=== PATIENT | female | born 1985 | race Caucasian/White ===

== ENCOUNTER 2022-12-29 20:39 | Emergency (ER) | payer BC ==
--- OUTSIDE RECORDS SUMMARY | 2022-12-29 20:41 | XMS REPORT | Continuity of Care Document ---
:1985 Author Organization [facility] t Address [address] [place] [address] Care Team Providers Name Role Phone Pcp, Patient Does Not Have A Primary Care Physician [id number] Brian Attending Clinician Unavailable RUPINDER HOPKINS Attending Clinician Unavailable Rupinder Seals Attending Clinician Unknown, Attending Attending Clinician Unavailable LITTLE BAUTISTA Attending Clinician Unavailable Little Bautista PA-C Attending Clinician Doctor Unassigned, [place] Attending Clinician Unavailable Lab, Adc Fam Pob I Attending Clinician Unavailable Sanaz Black Attending Clinician SANAZ FRASER Attending Clinician Unavailable Brian Admitting Clinician Unavailable Payers Payer Name Policy Type Policy Number Effective Date Expiration Date S [place] [id number] 2022 00:00:00 [id number] 2022 00:00:00 [place] [id number] 2017 00:00:00 OUT OF STATE Problems This patient has no known problems. Allergies, Adverse Reactions, Alerts Allergy Allergy Status Severity Reaction(s) Onset Inactive Treating Comm ents Source Name Type Date Date Clinician VANCOMYC DRUG Active Other-Cmnt Univ ers IN INGREDI 02-02 ity of 00:00: [place] 00 Medical Branch Vancomyc Drug Active Other - See Uni vers in Allergy comments 8- ity of 00:00: [place] 00 Medical Branch NO KNOWN Drug Active Univers ALLERGIE Class ity of S [facility] Social History Social Habit Start Date Stop Date Quantity Comments Source [facility] [birth year] [facility] [place] [facility] Medical Branch Smoking Status Start Date Stop Date Source Tobacco smoking consumption Univ ersity of [place] Medical unknown Branch Medications Ordered Filled Start Stop Current Ordering Indication Dosage Frequency Signature Comments Components Source Medication Medication Date Date Medication? Clinician (SIG) Name Name Nitrofurant Yes [id number] 100mg Take 1 Univers oin&Nit. 4-08 capsule by ity o f Macrocryst 00:00: mouth in Abdoulaye as (MACROBID) 00 the Medical 100 mg morning Branch capsule and 1 capsule in the evening. Nitrofurant Yes [id number] 100mg Take 1 Univers oin&Nit. 4-08 capsule by ity o f Macrocryst 00:00: mouth in Abdoulaye as (MACROBID) 00 the Medical 100 mg morning Branch capsule and 1 capsule in the evening. Nitrofurant Yes [id number] 100mg Take 1 Univers oin&Nit. 4-08 capsule by ity o f Macrocryst 00:00: mouth in Abd[place]aye as (MACROBID) 00 the Medical 100 mg morning Branch capsule and 1 capsule in the evening. TRI-LO-DEANDRE Yes Univer s 0.18/0.215/ 4-03 ity of 0.25 mg-25 00:00: [place] mcg tablet 00 Medical Branch TRI-LO-DEANDRE Yes Univer s 0.18/0.215/ 4-03 ity of 0.25 mg-25 00:00: [place] mcg tablet 00 Medical Branch TRI-LO-DEANDRE Yes Univer s 0.18/0.215/ 4-03 ity of 0.25 mg-25 00:00: [place] mcg tablet 00 Medical Branch clonazePAM Yes TAKE 1 Unive rs 0.5 mg 3-31 TABLET BY ity of tablet 00:00: MOUTH 2 [place] 00 TIMES A Medical DAY IF Branch NEEDED FOR ANXIETY. eszopiclone 2023-0 Yes TAKE 1 Univ ers 3 mg tablet 3-31 TABLET (3 ity of 00:00: MG TOTAL) BY MOUTH Medical EVERY Branch NIGHT TAKE IMMEDIATEL Y BEFORE BEDTIME SERTraline 2022-0 Yes 75mg Take 1.5 Uni vers 50 mg 3-31 tablets by ity of tablet 00:00: mouth. [place] [facility] Branch clonazePAM 2022-0 Yes TAKE 1 Unive rs 0.5 mg 3-31 TABLET BY ity of tablet 00:00: MOUTH 2 [place] 00 TIMES A Medical DAY IF Branch NEEDED FOR ANXIETY. eszopiclone 0 Yes TAKE 1 Univ ers 3 mg tablet 3-31 TABLET (3 ity of 00:00: MG TOTAL) [place] BY MOUTH Medical EVERY Branch NIGHT TAKE IMMEDIATEL Y BEFORE BEDTIME SERTraline 2022-0 Yes 75mg Take 1.5 Uni vers 50 mg 3-31 tablets by ity of tablet 00:00: mouth. [address] clonazePAM Yes TAKE 1 Unive rs 0.5 mg 3-31 TABLET BY ity of tablet 00:00: MOUTH 2 [place] 00 TIMES A Medical DAY IF Branch NEEDED FOR ANXIETY. eszopiclone 0 Yes TAKE 1 Univ ers 3 mg tablet 3-31 TABLET (3 ity of 00:00: MG TOTAL) [place] BY MOUTH Medical EVERY Branch NIGHT TAKE IMMEDIATEL Y BEFORE BEDTIME SERTraline 2022-0 Yes 75mg Take 1.5 Uni vers 50 mg 3-31 tablets by ity of tablet 00:00: mouth. [address] valACYclovi 2021-0 Yes 500mg Take 1 Uni vers r 500 mg 9-01 tablet by ity of tablet 00:00: mouth. [address] valACYclovi 2021-0 Yes 500mg Take 1 Uni vers r 500 mg 9-01 tablet by ity of tablet 00:00: mouth. [address] Branch valACYclovi 2021-0 Yes 500mg Take 1 Uni vers r 500 mg 9-01 tablet by ity of tablet 00:00: mouth. [address] Vital Signs Vital Name Observation Time Observation Value Comments Source Systolic blood 2022-11-04 17:34:00 104 mm[Hg] Univer sity of pressure [facility] Diastolic blood 2022-11-04 17:34:00 64 mm[Hg] Unive rsity of pressure [facility] Heart rate 2022-11-04 17:34:00 69 /min Universi ty of [facility] Body temperature 2022-11-04 17:34:00 36.39 Rachael Univ ersity of [facility] Branch Respiratory rate 2022-11-04 17:34:00 16 /min Univ ersity of [facility] Body height 2022-11-04 17:34:00 162.6 cm Universi ty of [place] [facility] [place] Body weight 2022-11-04 17:34:00 78.472 kg Universi ty of [facility] BMI 2022-11-04 17:34:00 29.70 kg/m2 Universi ty of [facility] Oxygen saturation in 2022-11-04 17:34:00 97 /min University of Arterial blood by [facility] Pulse oximetry Branch Systolic blood 2022-09-23 01:06:00 117 mm[Hg] Univer sity of [facility] Diastolic blood 2022-09-23 01:06:00 77 mm[Hg] Unive rsity of [facility] Heart rate 2022-09-23 01:06:00 74 /min Universi ty of [facility] Body temperature 2022-09-23 01:06:00 36.61 Rachael [facility] Respiratory rate 2022-09-23 01:06:00 17 /min Univ ersity of [facility] Body height 2022-09-23 01:06:00 165.1 cm Universi ty of [place] [facility] [place] Body weight 2022-09-23 01:06:00 75.297 kg Universi ty of [facility] BMI 2022-09-23 01:06:00 27.62 kg/m2 Universi ty of [facility] Oxygen saturation in 2022-09-23 01:06:00 97 /min University of Arterial blood by [facility] Pulse oximetry Branch Procedures Procedure Date / Time Performed Performing Clinician Sourc e XR ANKLE 3+ VW LEFT 2022-11-04 17:53:51 Rupinder Hopkins [facility] POCT TEST 2022-09-23 01:17:00 Little Bautista [facility] ASSIGNMENT OF BENEFITS 2022-09-23 00:58:51 Doctor Unassigned, No [facility] [place] Name Medical Branch Encounters Start End Encounter Admission Attending Care Care Encounter Source Date/Time Date/Time Type Type Clinicians Facility Department ID 2022-12-05 2022-12-05 Outpatient FOG_Loncari AOSM AOSM [id number] Lorie 00:00:00 00:00:00 Antwan [id number] [facility] 2022-11-27 2022-11-27 Outpatient FOG_Loncari AOSM AOSM [id number] Lorie 00:00:00 00:00:00 Antwan [id number] [facility] 2022-11-27 2022-11-27 Outpatient FOG_Loncari AOSM AOSM [id number] Lorie 00:00:00 00:00:00 Antwan [id number] [facility] 2022-11-08 2022-11-08 Outpatient FOG_Loncari AOSM AOSM [id number] Lorie 00:00:00 00:00:00 Antwan [id number] Orth [facility] 2022-11-07 2022-11-07 Outpatient FOG_Loncari AOSM AOSM [id number] Lorie 00:00:00 00:00:00 Antwan [id number] [facility] 2022-11-05 2022-11-05 Outpatient FOG_Loncari AOSM AOSM [id number] Lorie 00:00:00 00:00:00 Antwan [id number] Orth ope [facility] Medicin e 2022-11-04 2022-11-04 [facility] [id number] Univers 12:48:40 23:59:00 RUPINDER ity [facility] 2022-11-04 2022-11-04 [facility] [id number] Univers 12:48:40 23:59:00 Encounter [id number] 4.2.7.2.686 Abdoulaye as COLE?BLEA [id number] Vt dical GAUTAM [address] [place] MEDICAL OFFICE BUILDING 2022-11-04 2022-11-04 Urgent Rupinder Hopkins [facility] [id number] Univers 12:20:00 13:22:06 Care Unknown, Attending HEALTH [id number] ity of [place] 4.2.7.2.686 Abdoulaye as COLE?BLEA [id number] [address] OFFICE BUILDING 2022-09-22 2022-09-22 Outpatient R LETTY [facility] [id number] Univers 20:00:00 20:12:51 LITTLE ity of [facility] 2022-09-22 2022-09-22 Urgent Letty [facility] [id number] Univers 20:00:00 20:12:51 Care Unknown, Attending HEALTH [id number] [facility] 4.2.7.2.686 Abdoulaye as COLE?BLEA [id number] [address] OFFICE [facility] 2022-09-22 2022-09-22 Orders Doctor MICHELLE [id number] Univers 00:00:00 00:00:00 Only Unassigned, WES [id number] ity of [place] [facility] 4.2.7.2.686 Abdoulaye as [id number] [address] 2020-01-08 2020-01-08 Laboratory Lab, [facility] [id number] 08:44:06 09:04:06 Only Fam Pob I Health [id number] [place] 4.2.7.2.686 Professio [id number] [address] 2020-01-08 2020-01-08 Laboratory Lab, [facility] Fam Pob I [facility] [id number] Univers 08:44:06 09:04:06 Only Aneyonathan [facility] [id number] ity of [place] 4.2.7.2.686 Abdoulaye as Professio [id number] [address] Office [facility] 2020-01-08 2020-01-08 Outpatient R BRIA [facility] [id number] Univers 08:40:00 08:40:00 SANAZ ity [facility] Results Test Description Test Time Test Comments Results Result Comments Source POCT TEST 2022-09-23 01:17:00 Test Item Value Reference Range Interpretation Comme nts POCT PREG (test code = 1605) Negative On board controls acceptable with C Line (test code = 3574) Yes POCT PREG LOT # (test code = 3575) POCT PREG TEST DATE (test code = 3576) [facility]
[2022-12-29] MEDS ORDERED: MORPHINE 4 MG/ML SYR ONE (21:19)
[2022-12-29] MEDS ORDERED: ONDANSETRON 4 MG/2 ML VIAL ONE (21:20)
[2022-12-29 21:30] LABS: Absolute Lymphocytes (CBC) 3.4 K/uL (0.7-4.9); Hematocrit 38.7 % (36.0-45.0); Lymphocytes % 24.7 % (15.3-44.8); MPV 7.8 fL (7.6-11.3); RBC Red Blood Cell Count 4.55 M/uL (3.86-4.86)
[2022-12-29 21:39] LABS: Potassium 3.6 mEq/L (3.5-5.1)
--- NOTE | 2022-12-29 21:48 | RAD REPORT ---
EXAM DESCRIPTION: RAD - Wrist Left 3 View - 12/29/2022 9:41 pm CLINICAL HISTORY: PAIN Pain COMPARISON: No comparisons FINDINGS: No fracture or dislocation seen. No foreign body or other soft tissue abnormality. IMPRESSION: Negative examination.
--- NOTE | 2022-12-29 21:49 | RAD REPORT ---
EXAM DESCRIPTION: RAD - Forearm Left - 12/29/2022 9:41 pm CLINICAL HISTORY: PAIN COMPARISON: No comparisons FINDINGS: No acute fracture or dislocation seen.
--- NOTE | 2022-12-29 21:50 | RAD REPORT ---
EXAM DESCRIPTION: RAD - Hand Right 3 View - 12/29/2022 9:41 pm CLINICAL HISTORY: PAIN COMPARISON: No comparisons FINDINGS: There is a fracture involving the base of the proximal phalanx of the fifth finger with mo derate the displacement.
--- NOTE | 2022-12-29 22:21 | RAD REPORT ---
EXAM DESCRIPTION: CT - Head C Spine Cap W Con - 12/29/2022 10:04 pm CLINICAL HISTORY: Trauma, head and neck injury. Chest, abdomen and pelvis pain. TRAUMA COMPARISON: Facial Bones W/ Mpr dated 12/29/2022; Forearm Left dated 12/29/2022; Wrist Left 3 View yael ed 12/29/2022 TECHNIQUE: CT head without contrast. CT cervical spine without contrast with coronal and sagittal reformatted images. CT chest, abdomen and pelvis with IV contrast (approximately 100 mL nonionic IV contrast) with mcfarland l and sagittal reformatted images of the spine. All CT scans are performed using dose optimization technique as appropriate and may include automated exposure control or mA/KV adjustment according to patient size. FINDINGS: CT HEAD WITHOUT CONTRAST: No intracranial hemorrhage, hydrocephalus or extra-axial fluid collection. No areas of brain edema o r midline shift. The paranasal sinuses and mastoids are clear. The calvarium is intact. Right periorbital soft tissue swelling. CT CERVICAL SPINE WITHOUT CONTRAST: No fracture or subluxation. The prevertebral soft tissues are normal in thickness. CT CHEST, ABDOMEN, PELVIS WITH CONTRAST: The lungs are clear.No pneumothorax or pericardial/pleural fluid. No evidence of intra-abdominal visceral injury, free fluid or free air. No concerning pelvic findings. No fractures. IMPRESSION: Negative for acute traumatic findings.
--- NOTE | 2022-12-29 22:22 | RAD REPORT ---
EXAM DESCRIPTION: CT - CTFB CLINICAL HISTORY: TRAUMA COMPARISON: No comparisons TECHNIQUE: Axial 2 mm thick images of the face were obtained with sagittal and coronal reconstructio n images. All CT scans are performed using dose optimization technique as appropriate and may include automated exposure control or mA/KV adjustment according to patient size. FINDINGS: No acute facial bone fracture is seen.The mandible is intact. The globes and orbital contents are grossly unremarkable.Moderate right periorbital soft tissue swell ing.The paranasal sinuses and mastoids are clear. IMPRESSION: Negative for facial bone fracture. Moderate soft tissue swelling right preseptal region. No underlying vitreous abnormality.
[2022-12-29] MEDS ORDERED: FENTANYL CITR 100 MCG/2 ML ONE ×2 (22:28→23:04)
[2022-12-29] MEDS ORDERED: LORazepam 2 MG/ML VIAL ONE (23:04)
[2022-12-29] MEDS ORDERED: KETOROLAC 30 MG/ML INJ ONE (23:05)
--- NOTE | 2022-12-29 23:30 | EDPHYS ---
Physician Documentation [facility] Name: Tereza Clayton Age: 37 yrs Sex: Female : 1985 Arrival Date: 12/29/2022 Time: 20:39 Bed 3 Private MD: ED Physician Angus Madlonado HPI: 12/30 00:09 This 37 yrs old Female presents to ER via Wheelchair with complaints of Fell Of Horse. rt 00:09 Patient presents to the ED with a fall from horse that occurred just prior to arrival. rt The patient complains of pain to the left forearm, wrist. The patient also complains of pain to the right little finger. She reports an abrasion to the face, but denies loss of consciousness. Denies other pain. Symptoms are moderate severity, aching nature, nonradiating, no other aggravating alleviating factors. 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 - Immunization history: Last tetanus immunization: unknown. - Social history:: Smoking status: Patient denies any tobacco usage or history of. - Family history:: not pertinent. ROS: 12/30 00:09 Constitutional: Negative for fever, chills, and weight loss, Neck: Negative for injury, rt pain, and swelling, Cardiovascular: Negative for chest pain, palpitations, and edema, Respiratory: Negative for shortness of breath, cough, wheezing, and pleuritic chest pain, Abdomen/GI: Negative for abdominal pain, nausea, vomiting, diarrhea, and constipation, Skin: Negative for injury, rash, and discoloration, Neuro: Negative for headache, weakness, numbness, tingling, and seizure, Psych: Negative for depression, anxiety, suicide ideation, homicidal ideation, and hallucinations. MS/extremity: Positive for injury or acute deformity, Negative for contusion. Exam: 00:09 Constitutional: This is a well developed, well nourished patient who is awake, alert, rt and in no acute distress. Neck: Trachea midline, no thyromegaly or masses palpated, and no cervical lymphadenopathy. Supple, full range of motion without nuchal rigidity, or vertebral point tenderness. No Meningismus. Chest/axilla: Normal chest wall appearance and motion. Nontender with no deformity. No lesions are appreciated. Cardiovascular: Regular rate and rhythm with a normal S1 and S2. No gallops, murmurs, or rubs. Normal PMI, no JVD. No pulse deficits. Respiratory: Lungs have equal breath sounds bilaterally, clear to auscultation and percussion. No rales, rhonchi or wheezes noted. No increased work of breathing, no retractions or nasal flaring. Abdomen/GI: Soft, non-tender, with normal bowel sounds. No distension or tympany. No guarding or rebound. No evidence of tenderness throughout. Skin: Warm, dry with normal turgor. Normal color with no rashes, no lesions, and no evidence of cellulitis. Neuro: Awake and alert, GCS 15, oriented to person, place, time, and situation. Cranial nerves II-XII grossly intact. Motor strength 5/5 in all extremities. Sensory grossly intact. Cerebellar exam normal. Normal gait. Psych: Awake, alert, with orientation to person, place and time. Behavior, mood, and affect are within normal limits. 00:09 Head/face: Abrasion noted to the right cheek, no other external evidence of trauma. 00:09 Musculoskeletal/extremity: The right little digit is deviated laterally, good capillary refill, there is bruising noted to the left forearm, no deformities noted, no snuffbox tenderness, pulses, motor, sensation intact. Vital Signs: 12/29 20:53 BP 129 / 84; Pulse 105; Resp 20; Temp 99.4; Pulse Ox 100% ; Weight 70.31 kg; Height 5 as6 ft. 4 in. ; Pain 10/10; 22:15 BP 122 / 80; Pulse 100; Resp 16; Pulse Ox 99% on R/A; jb4 23:10 BP 112 / 65; Pulse 101; Resp 19; Pulse Ox 97% on R/A; jb4 23:20 BP 113 / 67; Pulse 94; Resp 20 S; Pulse Ox 98% on R/A; as6 20:53 Body Mass Index 26.61 (70.31 kg, 162.56 cm) as6 20:53 Pain Scale: Adult as6 [place] Coma Score: 21:01 Eye Response: spontaneous(4). Motor Response: obeys commands(6). Verbal Response: jb4 oriented(5). Total: 15. 22:15 Eye Response: spontaneous(4). Motor Response: obeys commands(6). Verbal Response: jb4 oriented(5). Total: 15. 23:10 Eye Response: spontaneous(4). Motor Response: obeys commands(6). Verbal Response: jb4 oriented(5). Total: 15. Trauma Score (Adult): 21:01 Eye Response: spontaneous(1); Verbal Response: oriented(1); Motor Response: obeys jb4 commands(2); Systolic BP: > 89 mm Hg(4); Respiratory Rate: 10 to 29 per min(4); Tee Score: 15; Trauma Score: 12 22:15 Eye Response: spontaneous(1); Verbal Response: oriented(1); Motor Response: obeys jb4 commands(2); Systolic BP: > 89 mm Hg(4); Respiratory Rate: 10 to 29 per min(4); Tee Score: 15; Trauma Score: 12 23:10 Eye Response: spontaneous(1); Verbal Response: oriented(1); Motor Response: obeys jb4 commands(2); Systolic BP: > 89 mm Hg(4); Respiratory Rate: 10 to 29 per min(4); Tee Score: 15; Trauma Score: 12 Procedures: 12/30 00:09 Splinting: Splint applied to right hand using Ulnar gutter. applied by myself. Examined rt by me, post splint application: neurovascular intact, 2+ distal pulses palpable, brisk capillary refill noted, Patient tolerated well, The finger was moved into a more anatomic position prior to splinting. MDM: 12/29 20:46 Patient medically screened. rt 12/30 00:09 Differential Diagnosis Fracture, dislocation, contusion, sprain. Data reviewed: vital rt signs, nurses notes, radiologic studies. I considered the following discharge prescriptions or medication management in the emergency department Medications were administered in the Emergency Department. See MAR. Independent interpretation of the following test(s) in the Emergency Department CT Scan: My interpretation is No hemorrhage seen on interpretation of the CT scan images. Counseling: I had a detailed discussion with the patient and/or guardian regarding: the historical points, exam findings, and any diagnostic results supporting the discharge/admit diagnosis, lab results, radiology results, the need for outpatient follow up. ED course: Patient structured to follow-up with hand surgery. Patient was informed that she should follow-up for repeat x-rays of the wrist should her symptoms persist. No evidence of compartment syndrome on physical examination. Patient stable for outpatient care, return precautions as. 12/29 21:08 Order name: Basic Metabolic Panel; Complete Time: 21:46 rt 12/29 21:08 Order name: CBC with Diff; Complete Time: 21:46 rt 12/29 21:08 Order name: Type And Screen; Complete Time: 22:16 rt 12/29 21:08 Order name: CT Traumagram (Head C Spine CAP W Con); Complete Time: 22:28 rt 12/29 21:08 Order name: Wrist Left (3 View) XRAY; Complete Time: 22:16 rt 12/29 21:08 Order name: Forearm Left XRAY; Complete Time: 22:16 rt 12/29 21:08 Order name: Hand Right 3 View XRAY; Complete Time: 22:16 rt 12/29 21:46 Order name: CT Facial Bones W/O Con; Complete Time: 22:28 rt 12/29 21:08 Order name: Labs collected and sent; Complete Time: 21:20 rt 12/29 22:44 Order name: Splint - Wrist; Complete Time: 22:59 rt Administered Medications: 12/29 21:20 Drug: morphine IVP or IV 4 mg Route: IVP; Infused Over: 4 mins; Site: right antecubital;jb4 23:26 Follow up: Response: No adverse reaction as6 21:20 Drug: Ondansetron IVP 4 mg Route: IVP; Site: right antecubital; jb4 23:27 Follow up: Response: No adverse reaction as6 22:23 Drug: fentaNYL (PF) IVP 100 mcg Route: IVP; Site: right antecubital; jb4 23:27 Follow up: Response: No adverse reaction as6 22:59 Drug: Ativan IVP 0.5 mg Route: IVP; Site: right antecubital; jb4 23:27 Follow up: Response: No adverse reaction as6 22:59 Drug: fentaNYL (PF) IVP 50 mcg Route: IVP; Site: right antecubital; jb4 23:27 Follow up: Response: No adverse reaction as6 22:59 Drug: Ketorolac IVP 15 mg Route: IVP; Site: right antecubital; jb4 23:27 Follow up: Response: No adverse reaction as6 Disposition Summary: 12/29/22 23:29 Discharge Ordered Location: Home rt Problem: new rt Symptoms: have improved rt Condition: Stable rt Diagnosis - Fall from horse rt - Right fifth proximal phalanx fracture rt - Left wrist pain rt - Abrasion to face rt Followup: rt - With: Mannie Sherman MD - When: 5 - 6 days - Reason: Discharge Instructions: - Discharge Summary Sheet rt - Abrasion rt - Finger Fracture, Adult rt - Wrist Sprain, Adult rt Forms: - Medication Reconciliation Form rt - Thank You Letter rt - Antibiotic Education rt - Prescription Opioid Use rt - Patient Portal Instructions rt Prescriptions: - acetaminophen-codeine 300-30 mg Oral tablet - take 1 tablet by ORAL route every 6 hours; 18 tablet; Refills: 0, Product rt Selection Permitted Signatures: Dispatcher [employer] Jabari Sen, RN RN jb4 Mark Lai RN RN as6 Angus Maldonado MD MD rt
--- NOTE | 2022-12-29 23:30 | ER ---
Nurse's Notes [facility] Name: Tereza Clayton Age: 37 yrs Sex: Female : 1985 Arrival Date: 12/29/2022 Time: 20:39 Bed 3 Private MD: Diagnosis: Fall from horse;Right fifth proximal phalanx fracture;Left wrist pain;Abrasion to face Presentation: 12/29 20:53 Chief complaint: Patient states: Fell off a horse onto the ground 30 minutes prior to as6 arrival. Hematoma, swelling to right side of face, pain to right ribs, right hand 5th finger deformity, left arm deformity. Onset of symptoms was December 29, 2022. 20:53 Method Of Arrival: Wheelchair as6 20:53 Acuity: SYED 2 as6 23:26 Coronavirus screen: At this time, the client does not indicate any symptoms associated as6 with coronavirus-19. Ebola Screen: No symptoms or risks identified at this time. Initial Sepsis Screen: Does the patient meet any 2 criteria? No. Patient's initial sepsis screen is negative. Does the patient have a suspected source of infection? No. Patient's initial sepsis screen is negative. Risk Assessment: Do you want to hurt yourself or someone else? Patient reports no desire to harm self or others. 23:26 Care prior to arrival: None. Mechanism of Injury: Fall. Trauma event details: Injury as6 occurred in the [facility]. Triage Assessment: 20:56 General: Appears uncomfortable, Behavior is calm. Pain: Complains of pain in face, as6 back, chest, pelvis, right hand and left leg Pain currently is 10 out of 10 on a pain scale. 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 Cardiovascular: No deficits noted. Respiratory: No deficits noted. GI: No deficits noted. : No deficits noted. Derm: No deficits noted. Musculoskeletal: Bony deformity noted of right hand and left arm. Injury Description: Abrasion sustained to face Bruise sustained to right eye and right cheek Deformity. 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 - Immunization history: Last tetanus immunization: unknown. - Social history:: Smoking status: Patient denies any tobacco usage or history of. - Family history:: not pertinent. Screenin:57 [facility] ED Fall Risk Assessment (Adult) History of falling in the last 3 months, jb4 including since admission No falls in past 3 months (0 pts) Confusion or Disorientation No (0 pts) Score/Fall Risk Level 0 - 2 = Low Risk Oriented to surroundings, Maintained a safe environment. Abuse screen: Denies threats or abuse. Nutritional screening: No deficits noted. Tuberculosis screening: No symptoms or risk factors identified. Primary Survey: 21:01 NO uncontrolled hemorrhage observed. A: The client is awake and alert. The airway is jb4 patent. Breathing/Chest: Spontaneous respiratory effort, equal unlabored respirations, breath sounds clear bilaterally, regular pattern, symmetrical chest rise and fall. Circulation: No external hemorrhage present. Regular and strong central pulse, skin warm/dry/normal color. Disability Pupils are equal, round, reactive to light and accommodation. Exposure/Environment: All clothing and personal items were removed. Forensic evidence collection is not deemed to be indicated at this time. Items placed in patient belonging bag. 23:28 Reassessment Alertness and Airway: Awake and alert. The airway is patent. Breathing: as6 Spontaneous respiratory effort, equal unlabored respirations, breath sounds clear bilaterally, regular pattern with symmetrical chest rise and fall. Circulation: No external hemorrhage noted. Regular and strong central pulse, skin warm/dry/normal color. Disability: Pupils Pupils are equal, round, reactive to light and accomodation. Alert. Secondary Survey: 21:01 HEENT: Face Other Hematoma and bruising noted to the right side of the face. jb4 Gastrointestinal: No deficits noted. Abdomen is soft, non-distended. : No signs and/or symptoms were reported regarding the genitourinary system. Musculoskeletal: Circulation, motion, and sensation intact. Range of motion: limited in left elbow and MCP of right little finger. Injury Description: Deformity sustained to Palmar aspect of proximal phalanx of right little finger. Assessment: 20:57 General: Appears in no apparent distress. uncomfortable, Behavior is calm, cooperative. jb4 Pain: Complains of pain in right eye, right cheek, posterior aspect of right lateral abdomen, anterior aspect of right lateral abdomen, Palmar aspect of proximal phalanx of right little finger and palmar aspect of left forearm Pain does not radiate. Pain currently is 8 out of 10 on a pain scale. Neuro: Level of Consciousness is awake, alert, obeys commands, Oriented to person, place, time, situation. Cardiovascular: Patient's skin is warm and dry. Respiratory: Airway is patent Respiratory effort is even, unlabored, Respiratory pattern is regular, symmetrical. GI: No signs and/or symptoms were reported involving the gastrointestinal system. : No signs and/or symptoms were reported regarding the genitourinary system. EENT: No signs and/or symptoms were reported regarding the EENT system. Derm: Skin is intact, Skin is pink, warm \T\ dry. Musculoskeletal: Circulation, motion, and sensation intact. Range of motion: intact in all extremities. 22:00 Reassessment: Patient appears in no apparent distress at this time. Patient and/or jb4 family updated on plan of care and expected duration. Pain level reassessed. Patient is alert, oriented x 3, equal unlabored respirations, skin warm/dry/pink. 23:10 Reassessment: Patient appears in no apparent distress at this time. Patient and/or jb4 family updated on plan of care and expected duration. Pain level reassessed. Patient is alert, oriented x 3, equal unlabored respirations, skin warm/dry/pink. Provider at the bedside performing splint and fracture care. Vital Signs: 20:53 BP 129 / 84; Pulse 105; Resp 20; Temp 99.4; Pulse Ox 100% ; Weight 70.31 kg; Height 5 as6 ft. 4 in. ; Pain 10/10; 22:15 BP 122 / 80; Pulse 100; Resp 16; Pulse Ox 99% on R/A; jb4 23:10 BP 112 / 65; Pulse 101; Resp 19; Pulse Ox 97% on R/A; jb4 23:20 BP 113 / 67; Pulse 94; Resp 20 S; Pulse Ox 98% on R/A; as6 20:53 Body Mass Index 26.61 (70.31 kg, 162.56 cm) as6 20:53 Pain Scale: Adult as6 [place] Coma Score: 21:01 Eye Response: spontaneous(4). Motor Response: obeys commands(6). Verbal Response: jb4 oriented(5). Total: 15. 22:15 Eye Response: spontaneous(4). Motor Response: obeys commands(6). Verbal Response: jb4 oriented(5). Total: 15. 23:10 Eye Response: spontaneous(4). Motor Response: obeys commands(6). Verbal Response: jb4 oriented(5). Total: 15. Trauma Score (Adult): 21:01 Eye Response: spontaneous(1); Verbal Response: oriented(1); Motor Response: obeys jb4 commands(2); Systolic BP: > 89 mm Hg(4); Respiratory Rate: 10 to 29 per min(4); Tee Score: 15; Trauma Score: 12 22:15 Eye Response: spontaneous(1); Verbal Response: oriented(1); Motor Response: obeys jb4 commands(2); Systolic BP: > 89 mm Hg(4); Respiratory Rate: 10 to 29 per min(4); Tee Score: 15; Trauma Score: 12 23:10 Eye Response: spontaneous(1); Verbal Response: oriented(1); Motor Response: obeys jb4 commands(2); Systolic BP: > 89 mm Hg(4); Respiratory Rate: 10 to 29 per min(4); [place] Score: 15; Trauma Score: 12 ED Course: 20:42 Patient arrived in ED. ja2 20:46 Angus Maldonado MD is Attending Physician. rt 20:56 Triage completed. as6 20:57 Jabari Foley RN is Primary Nurse. jb4 20:57 Arm band placed on right wrist. jb4 20:57 Patient has correct armband on for positive identification. Bed in low position. Call jb4 light in reach. Side rails up X 1. Client placed on continuous cardiac and pulse oximetry monitoring. NIBP monitoring applied. 21:12 Radiology exam delayed due to lab results not completed at this time. (BUN/Creatinine) eh4 test not completed at this time. IV insertion attempt and/or patient not having appropriate IV at this time. 21:12 Initial lab(s) drawn, by me, sent to lab. Inserted saline lock: 20 gauge in right jb4 antecubital area, using aseptic technique. Blood collected. 21:20 Basic Metabolic Panel Sent. jb4 21:20 CBC with Diff Sent. jb4 21:21 Type And Screen Sent. jb4 21:43 Wrist Left (3 View) XRAY In Process Unspecified. EDMS 21:43 Forearm Left XRAY In Process Unspecified. EDMS 21:43 Hand Right 3 View XRAY In Process Unspecified. EDMS 22:06 CT Traumagram (Head C Spine CAP W Con) In Process Unspecified. EDMS 22:06 CT Facial Bones W/O Con In Process Unspecified. EDMS 23:28 Mannie Sherman MD is Referral Physician. rt 23:28 Patient maintains SpO2 saturation greater than 95% on room air. Thermoregulation: warm as6 blanket given to patient. 23:28 No provider procedures requiring assistance completed. Orthoglass splint: Ulnar as6 gutter/Boxer splint applied on right forearm. 23:29 Provided Education on: cast care. as6 23:48 IV discontinued, intact, bleeding controlled, No redness/swelling at site. Pressure as6 dressing applied. Administered Medications: 21:20 Drug: morphine IVP or IV 4 mg Route: IVP; Infused Over: 4 mins; Site: right antecubital;jb4 23:26 Follow up: Response: No adverse reaction as6 21:20 Drug: Ondansetron IVP 4 mg Route: IVP; Site: right antecubital; jb4 23:27 Follow up: Response: No adverse reaction as6 22:23 Drug: fentaNYL (PF) IVP 100 mcg Route: IVP; Site: right antecubital; jb4 23:27 Follow up: Response: No adverse reaction as6 22:59 Drug: Ativan IVP 0.5 mg Route: IVP; Site: right antecubital; jb4 23:27 Follow up: Response: No adverse reaction as6 22:59 Drug: fentaNYL (PF) IVP 50 mcg Route: IVP; Site: right antecubital; jb4 23:27 Follow up: Response: No adverse reaction as6 22:59 Drug: Ketorolac IVP 15 mg Route: IVP; Site: right antecubital; jb4 23:27 Follow up: Response: No adverse reaction as6 Medication: 23:26 VIS not applicable for this client. as6 Intake: 23:48 PO: 50ml (Water); Total: 50ml. as6 Outcome: 23:25 Condition: stable as6 23:25 Patient's length of stay in the Emergency Department was greater than 2 hours. pending dcPatient's length of stay extended due to 23:29 Discharge ordered by . rt 23:47 Discharged to home via wheelchair, with family. as6 23:47 Discharge instructions given to patient, Instructed on discharge instructions, follow up and referral plans. medication usage, Demonstrated understanding of instructions, follow-up care, medications, splint care, Prescriptions given X 1. 23:48 Patient left the ED. as6 Signatures: Dispatcher [employer] EDMS Jabari Foley RN RN jb4 Bettina Begum Ashby, KARINE RN as6 Anshul Vivas [facility] Angus Maldonado MD MD rt
[2022-12-30 00:36] VITALS: TEMP 99.4
[2022-12-30 00:40] VITALS: BP 112/65; O2SAT 97
== END 2022-12-29 23:48 | disposition home or self-care (01) ==
LOC: ER 20:39
DX: S62.511A Displaced fracture of proximal phalanx of right thumb, initial encounter for closed fracture (principal); S00.81XA Abrasion of other part of head, initial encounter; M25.532 Pain in left wrist; V80.010A Animal-rider injured by fall from or being thrown from horse in noncollision accident, initial encounter; Z88.3 Allergy status to other anti-infective agents
CPT/HCPCS: 85025; 80048; 36415; 86900; 86850; 86901; 70450; 72125; 71260; 70486; 76377; 74177; 73130; 73090; 73110; 96375; 96374; 99285; Q9967; J3010 ×2; J2405